=== PATIENT | male | born 1965 | race American Indian/Alaskan Native ===

== ENCOUNTER 2020-03-27 07:19 | Emergency (ER) | payer OTHER ==
--- NOTE | 2020-03-27 07:54 | Event Note ---
ED Screening Note ED Screening Note: sent by work nurse due to difficulty urinating and co for k stone This initial assessment/diagnostic orders/clinical plan/treatment(s) is/are subject to change based on patients health status, clinical progression and re- assessment by fellow clinical providers in the ED. Further treatment and workup at subsequent clinical providers discretion. Patient/guardian urged not to elope from the ED as their condition may be serious if not clinically assessed and managed. Initial orders include: ua/basic/cbc
[2020-03-27 08:07] LABS: Basophils % (Auto) 0.3 % (0.0-1.8); Eosinophils # (Auto) 0.2 K/mm3 (0.0-0.4); Hematocrit 33.7 % (35.5-45.6); Hemoglobin 11.3 gm/dl (11.8-15.2); Lymphocytes # (Auto) 3.1 K/mm3 (1.2-5.4); Lymphocytes % (Auto) 52.1 % (13.4-35.0); Mean Corpuscular HGB Conc 33 % (32-34); Mean Corpuscular Volume 88 fl (84-94); Monocytes # (Auto) 0.6 K/mm3 (0.0-0.8); Monocytes % (Auto) 9.5 % (0.0-7.3); Platelet Count 124 K/mm3 (140-440); Red Blood Count 3.82 M/mm3 (3.65-5.03); Red Cell Distribution Width 15.6 % (13.2-15.2)
[2020-03-27 08:31] LABS: Alanine Aminotransferase 72 units/L (7-56); Albumin 3.7 g/dL (3.9-5); BUN/Creatinine Ratio 10; Blood Urea Nitrogen 10 mg/dL (9-20); Calcium 8.8 mg/dL (8.4-10.2); Hemolysis Index 4
[2020-03-27 08:39] LABS: Bacteria,Urine 2+ /HPF (Negative); Bilirubin,Urine NEG (Negative); Blood,Urine SM (Negative); Color,Urine Yellow (Yellow); Mucus,Urine FEW /HPF; Urobilinogen,Urine < 2.0 mg/dL (<2.0)
[2020-03-27 08:41] LABS: WBC,Urine > 182.0 /HPF (0.0-6.0)
[2020-03-27] MEDS ORDERED: NITROFURANTOIN MONOHYD/M-CRYST 100 MG CAP PO ONE (09:05)
--- NOTE | 2020-03-27 09:05 | Emergency Department Report ---
ED General Adult HPI - General Chief complaint: Urogenital-Male Stated complaint: Painful urination PUI?: No Time Seen by Provider: 03/27/20 07:53 Source: patient, RN notes reviewed Mode of arrival: Ambulatory Limitations: No Limitations - History of Present Illness Initial comments: The patient was evaluated in the emergency department for symptoms described in the history of present illness. He/she was evaluated in the context of the global COVID-19 pandemic, which necessitated consideration that the patient might be at risk for infection with the virus that causes COVID-19. Institutional protocols and algorithms that pertain to the evaluation of patients at risk for COVID-19 are in a state of rapid change based on i nformation released by regulatory bodies including the CDC and federal and state organizations. These policies and algorithms were followed during the patient's care in the emergency department. Please note that these policies, procedures and recommendations changed on a rapid basis. Patient is a 54-year-old gentleman. He is not known to myself previously. He does not have a local primary care doctor, he denies chronic medical conditions. The patient presents to the ER today with complaint of painful urination for 3 to 4 days. The patient denies all other physical pain. At the moment, he denies back pain, flank pain, testicular pain, perennial pain, dyschezia, painful defecation. Patient identifies as heterosexual, is only sexually active with his , and only engages in vaginal intercourse. He specifically denies rectal intercourse. He denies hematuria. He denies all other injuries and complaints. -: Gradual, days(s) Severity scale (0 -10): 9 Quality: burning Improves with: none Worsens with: none Associated Symptoms: denies other symptoms - Related Data Previous Rx's Medication Instructions Recorded Last Taken Type Nitrofurantoin [place]/M-Cryst 100 mg PO Q12HR #13 capsule 03/27/20 Unknown Rx [Macrobid CAP] Phenazopyridine [Pyridium] 100 mg PO TID PRN #6 tab 03/27/20 Unknown Rx Allergies Allergy/AdvReac Type Severity Reaction Status Date / Time No Known Allergies Allergy Unverified 03/27/20 07:29 ED Review of Systems ROS: Stated complaint: ABD PAIN Other details as noted in HPI Comment: All other systems reviewed and negative Genitourinary: frequency. denies: hematuria, discharge, testicular pain, testicular mass ED Past Medical Hx - Past Medical History Previous Medical History?: No - Surgical History Past Surgical History?: No - Social History Smoking Status: Never Smoker Substance Use Type: None - Medications Home Medications: Home Medications Medication Instructions Recorded Confirmed Last Taken Type Nitrofurantoin [place]/M-Cryst 100 mg PO Q12HR #13 capsule 03/27/20 Unknown Rx [Macrobid CAP] Phenazopyridine [Pyridium] 100 mg PO TID PRN #6 tab 03/27/20 Unknown Rx ED Physical Exam - General Limitations: No Limitations General appearance: alert, in no apparent distress - Head Head exam: Present: atraumatic, normocephalic - Eye Eye exam: Present: normal appearance, EOMI. Absent: nystagmus - ENT ENT exam: Present: normal exam, normal orophraynx, mucous membranes moist, normal external ear exam - Neck Neck exam: Present: normal inspection, full ROM. Absent: tenderness, meningismus - Respiratory Respiratory exam: Present: normal lung sounds bilaterally. Absent: respiratory distress, wheezes, rales, rhonchi, stridor, chest wall tenderness - Cardiovascular Cardiovascular Exam: Present: regular rate, normal rhythm, normal heart sounds. Absent: bradycardia, tachycardia, irregular rhythm, systolic murmur, diastolic murmur, rubs, gallop - GI/Abdominal GI/Abdominal exam: Present: soft, normal bowel sounds. Absent: distended, tenderness, guarding, rebound, rigid, pulsatile mass - Rectal Rectal exam: Present: deferred - exam: Present: normal inspection (Chaperoned by Lois Weston), other (There is normal testicular lie. There is normal cremasteric reflex. There is no testicular tenderness. There is no testicular swelling). Absent: testicular tenderness, scrotal swelling, vertical testicular lie External exam: Present: normal external exam. Absent: erythema, swelling - Extremities Exam Extremities exam: Present: normal inspection, full ROM, other (2+ pulses noted in the bilateral upper and lower extremities. There is no palpable cord. negative Homans sign. Muscular compartments are soft. The pelvis is stable.). Absent: pedal edema, joint swelling, calf tenderness - Back Exam Back exam: Present: normal inspection, full ROM. Absent: tenderness, CVA tenderness (R), CVA tenderness (L), paraspinal tenderness, vertebral tenderness - Neurological Exam Neurological exam: Present: alert, oriented X3, normal gait, other (No facial droop. Tongue midline. Extraocular movements intact bilaterally. Facial sensation intact to light touch in V1, V2, V3 distribution bilaterally. 5 and a 5 strength in 4 extremities. Sensation intact to light touch in 4 extremi ties.). Absent: motor sensory deficit - Psychiatric Psychiatric exam: Present: normal affect, normal mood - Skin Skin exam: Present: warm, dry, intact, normal color. Absent: rash ED Course Vital Signs 03/27/20 07:33 Temperature 97.8 F Pulse Rate 71 Respiratory 20 Rate Blood Pressure 170/97 [Right] O2 Sat by Pulse 96 Oximetry ED Medical Decision Making - Lab Data Result diagrams: 03/27/20 07:42 03/27/20 07:42 Vital Signs 03/27/20 07:33 Temperature 97.8 F Pulse Rate 71 Respiratory 20 Rate Blood Pressure 170/97 [Right] O2 Sat by Pulse 96 Oximetry Lab Results 03/27/20 03/27/20 03/27/20 Range/Units 07:42 07:42 08:03 WBC 5.9 (4.5-11.0) K/mm3 RBC 3.82 (3.65-5.03) M/mm3 Hgb 11.3 L (11.8-15.2) gm/dl Hct 33.7 L (35.5-45.6) % MCV 88 (84-94) fl MCH 30 (28-32) pg MCHC 33 (32-34) % RDW 15.6 H (13.2-15.2) % Plt Count 124 L (140-440) K/mm3 Lymph % (Auto) 52.1 H (13.4-35.0) % [place] % (Auto) 9.5 H (0.0-7.3) % Eos % (Auto) 3.0 (0.0-4.3) % Baso % (Auto) 0.3 (0.0-1.8) % Lymph # (Auto) 3.1 (1.2-5.4) K/mm3 [place] # (Auto) 0.6 (0.0-0.8) K/mm3 Eos # (Auto) 0.2 (0.0-0.4) K/mm3 Baso # (Auto) 0.0 (0.0-0.1) K/mm3 Seg Neutrophils % 35.1 L (40.0-70.0) % Seg Neutrophils # 2.1 (1.8-7.7) K/mm3 Sodium 136 L (137-145) mmol/L Potassium 4.4 (3.6-5.0) mmol/L Chloride 104.1 (98-107) mmol/L Carbon Dioxide 29 (22-30) mmol/L Anion Gap 7 mmol/L BUN 10 (9-20) mg/dL Creatinine 1.0 (0.8-1.3) mg/dL Estimated GFR > 60 ml/min BUN/Creatinine Ratio 10 % Glucose 85 (75-100) mg/dL Calcium 8.8 (8.4-10.2) mg/dL Total Bilirubin 0.60 (0.1-1.2) mg/dL AST 44 H (5-40) units/L ALT 72 H (7-56) units/L Alkaline Phosphatase 99 (35-129) units/L Total Protein 9.2 H (6.3-8.2) g/dL Albumin 3.7 L (3.9-5) g/dL Albumin/Globulin Ratio 0.7 % Urine Color Yellow (Yellow) Urine Turbidity Cloudy (Clear) Urine pH 5.0 (5.0-7.0) Ur Specific [place] 1.011 (1.003-1.030) Urine Protein 30 mg/dl (Negative) mg/dL Urine Glucose (UA) Neg (Negative) mg/dL Urine Ketones Neg (Negative) mg/dL Urine Blood Sm (Negative) Urine Nitrite Pos (Negative) Urine Bilirubin Neg (Negative) Urine Urobilinogen < 2.0 (<2.0) mg/dL Ur Leukocyte Esterase Lg (Negative) Urine WBC (Auto) > 182.0 H (0.0-6.0) /HPF Urine RBC (Auto) 29.0 (0.0-6.0) /HPF U Epithel Cells (Auto) < 1.0 (0-13.0) /HPF Urine Bacteria (Auto) 2+ (Negative) /HPF Urine Mucus Few /HPF - Medical Decision Making Differential diagnosis, including but not limited to: Cystitis, urethritis Assessment and plan: 54-year-old gentleman complaining of dysuria, without pain. He specifically denies all abdominal pain and back pain. He is sexually active with a single female partner, only with vaginal intercourse, he has no testicular pain, no rectal pain, no dyschezia, and no perennial pain. There is normal testicular lie. There is normal cremasteric reflex. There is no testicular tenderness. There is no testicular swelling Laboratory studies were sent prior to my personal evaluation of this patient. They are unremarkable. Urinalysis consistent with urethritis/cystitis. Given sexual monogamy, heterosexual orientation, one sexual partner, this is suspicious for cystitis. Patient has no testicular pain or tenderness, no rectal pain, perineal pain, abdominal pain or flank pain, therefore, prostatitis, pyelonephritis, orchitis epididymitis unlikely. He will be started on Macrobid. He does not have a local primary care doctor. Elevated blood pressure reviewed, appreciated, and asymptomatic. Please reference the [employer] clinical policy on asymptomatic elevated blood pressure/hypertension. Patient eating food at this time, without difficulty, suitable for trial of discharge with oral antibiotics, outpatient management, diet lifestyle m odifications, and outpatient primary care follow-up for elevated blood pressure. Critical care attestation.: If time is entered above; I have spent that time in minutes in the direct care of this critically ill patient, excluding procedure time. ED Disposition Clinical Impression: Cystitis, Elevated blood pressure reading Disposition: DC- TO HOME OR SELFCARE Is pt being admited?: No Does the pt Need Aspirin: No Condition: Good Instructions: Urinary Tract Infection, Adult, Hypertension, Adult Additional Instructions: Take the antibiotics as directed. Cultures were sent today, and results will be available in the next 3 to 5 days. Please have a primary care doctor contact the medical records department to obtain culture results. We recommend follow-up with a primary care doctor within the next week. Please avoid consumption of alcohol. Pyridium medication may cause tears to change color to orange, may also change in urine coloration to orange. Please follow-up with a primary care doctor for elevated blood pressure within the next month. Recommend physical activities as tolerated, avoidance of alcohol, tobacco, cigarettes, and avoidance of simplecarbohydrates, sugary drinks, and processed foods. Please return to the emergency room right away with new pain, worsened pain, migration of pain, projectile vomiting, change in mental status, confusion, emily bility to tolerate liquid feeds, abdominal pain, flank pain, genital pain, rectal pain, or any new, worsened or different symptoms not present on the initial emergency room evaluation. Prescriptions: Nitrofurantoin [place]on/M-Cryst [Macrobid CAP] 100 mg PO Q12HR #13 capsule Phenazopyridine [Pyridium] 100 mg PO TID PRN #6 tab PRN Reason: Pain , Severe (7-10) Referrals: ANGEL TERRELL MD [Staff Physician] - 3-5 Days [facility] [Provider Group] - 3-5 Days
[2020-03-27 10:37] VITALS: BP 131/77
== END 2020-03-27 10:37 | disposition home or self-care (01) ==
LOC: ED 07:19
DX: N30.90 Cystitis, unspecified without hematuria (principal); R03.0 Elevated blood-pressure reading, without diagnosis of hypertension; Z79.899 Other long term (current) drug therapy
CPT/HCPCS: 36415; 80053; 81001; 85025; 87086